=== PATIENT | female | born 1995 | race Caucasian/White ===

== ENCOUNTER 2020-01-24 19:36 | Emergency (ER) | payer BC ==
[2020-01-24 20:17] VITALS: BP 126/75; PULSE 100; RESP 17; TEMP 98.2
[2020-01-24] MEDS ORDERED: LIDOCAINE 1% INJ 10MG/ML (20 ML MDV) SQ ONE (20:52)
[2020-01-24] MEDS ORDERED: DIPH,PERTUS(ACELL)TETVAC-LF 0.5 ML VIAL IM ONE (21:31)
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
== END 2020-01-24 22:24 | disposition home or self-care (01) ==
LOC: EC 19:36
DX: S91.011A Laceration without foreign body, right ankle, initial encounter (principal); Z23 Encounter for immunization; W18.09XA Striking against other object with subsequent fall, initial encounter; Y93.02 Activity, running
CPT/HCPCS: 90715; 99282; 90471; 12002; J2001